=== PATIENT | male | born 1945 | race Caucasian/White ===

== ENCOUNTER → 2017-01-16 | Outpatient (CLI) | payer MEDICARE ==
[2017-01-16 08:48] LABS: ABSOLUTE BASOPHILS # (AUTO) 0.1 10^3/uL (0.0-0.2); ABSOLUTE EOSINOPHILS # (AUTO) 0.3 10^3/uL (0.0-0.6); ABSOLUTE LYMPHOCYTES (AUTO) 1.3 10^3/uL (0.5-4.7); ABSOLUTE MONOCYTES (AUTO) 0.6 10^3/uL (0.1-1.4); ABSOLUTE NEUT (AUTO) 2.8 10^3/uL (1.7-8.2); BASOPHILS % (AUTO) 1.2 % (0-2); EOSINOPHILS % (AUTO) 5.4 % (0-6); HEMATOCRIT 43.8 % (37.9-51.0); HGB HCT DIFFERENCE 1.2; LYMPHOCYTES % (AUTO) 25.5 % (13-45); MEAN CORPUSCULAR HEMOGLOBIN 30.3 pg (27.0-33.4); MEAN CORPUSCULAR HGB CONC 34.3 g/dL (32.0-36.0); MEAN CORPUSCULAR VOLUME 89 fl (80-97); MONOCYTES % (AUTO) 11.2 % (3-13); RED BLOOD COUNT 4.95 10^6/uL (4.35-5.55); RED CELL DISTRIBUTION WIDTH 13.5 % (11.5-14.0); SEGMENTED NEUTROPHILS % (AUTO) 56.7 % (42-78)
[2017-01-16 09:06] LABS: ALANINE AMINOTRANSFERASE 47 U/L (21-72); ALBUMIN 4.2 g/dL (3.5-5.0); ALKALINE PHOSPHATASE 62 U/L (38-126); ANION GAP 11 (5-19); ASPARTATE AMINO TRANSFERASE 29 U/L (17-59); BILIRUBIN,DIRECT 0.3 mg/dL (0.0-0.4); BILIRUBIN,TOTAL 1.1 mg/dL (0.2-1.3); BLOOD UREA NITROGEN 18 mg/dL (7-20); CALCIUM 9.8 mg/dL (8.4-10.2); CARBON DIOXIDE 30 mmol/L (22-30); CHLORIDE 104 mmol/L (98-107); CHOLESTEROL 111.65 mg/dL (0-200); CREATININE RESULT 1.02 mg/dL (0.52-1.25); Direct HDL 39 mg/dL (>40); GLUCOSE 99 mg/dL (75-110); MAGNESIUM 1.9 mg/dL (1.6-2.3); POTASSIUM 4.1 mmol/L (3.6-5.0); SODIUM 145.1 mmol/L (137-145); TOTAL PROTEIN 6.8 g/dL (6.3-8.2); TRIGLYCERIDES 86 mg/dL (<150)
[2017-01-16 09:20] LABS: DIRECT LDL 50 mg/dL (<100)
== END ==
LOC: OD 07:38
PROVIDERS: ATTEND Internal Medicine
DX: E78.5 Hyperlipidemia, unspecified (principal); I10 Essential (primary) hypertension; R73.9 Hyperglycemia, unspecified; R35.1 Nocturia; R53.82 Chronic fatigue, unspecified; M19.90 Unspecified osteoarthritis, unspecified site; K21.9 Gastro-esophageal reflux disease without esophagitis
CPT/HCPCS: 36415; 80053; 80061; 83036; 83525; 83735; 84153; 84443; 85025

== ENCOUNTER → 2018-10-22 | Day surgery (SDC) | payer MEDICARE, BC ==
[~2018-10-22] MED LIST: CEFAZOLIN 1 GM/D5W RTU 1 GM/50 ML RTUPB IV PRN; LIDOCAINE 1%/EPINEPHRINE INJ 20 ML VIAL ONE; SODIUM BICARBONATE 8.4% INJ 50 MEQ/50 ML DISP.SYRIN ONE
[2018-10-22 09:21] VITALS: BP 143/81
--- NOTE | 2018-10-22 11:20 | Operative Report ---
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 Patient was brought into the operating room and placed on the operating room table in a supine position. Patient was then prepped with a Betadine scrub and Betadine solution and draped in a sterile and aseptic manner. The area was then marked. 12 O'clock was marked towards the elbow 3 O'clock was marked towards the volar surface 6:00 was marked towards the wrist 9:00 was marked towards the dorsal surface The area was then anesthetized with 1% lidocaine with epinephrine and bicarbonate for its anesthetic and hemostatic effects. The area was then excised and marked at 12:00. The specimen was sent for frozen section. The results came back that the deep and lateral margins were free. We had considered a primary closure but this would go against the natural relaxed skin tension lines. A primary closure would be too tight and would have increased chance of dehiscence. This will leave more of a scar so we decided to use a O to S flap reconstruction which would camouflage the scar better and take tension off of the closure so that would be less chances of complications. Then we went ahead and outlined the flap and anesthetized it. We then incised the flap and developed a flap maintaining the subdermal plexus. Then we undermined 360 to allow for plate like scarring and minimize trap door deformity. Throughout the case hemostasis was achieved with the bipolar. We then sutured the flap into its new position using 4-0 Vicryl for the subcutaneous and deep dermis. Skin was closed with a running subcuticular suture stitch using 4-0 PDS with knots being tied on the outside. And 4-0 PDS suture was used for support and placed in the central area of the incision. We then applied Dermabond followed by a light pressure dressing. Patient was then reversed from anesthesia and taken to the [facility] for recovery. The patient tolerated well. There were no complications. Lesion size was approximately 1.4 cm please see pathology for actual size. Portions of this note may be dictated using [employer] voice recognition software. Occasional variations and spelling and vocabulary could be possible and are unintentional. Additionally, there is a chance that some errors may not be caught or corrected. Please notify the author of any discrepancies noted or if any statements are unclear. Subjective: No complaints Objective: Vital signs stable afebrile No bleeding Dressing intact Assessment and plan: Doing well. Elevate the operative site. Resume medications. Take antibiotics for 1 day Follow-up Full instructions were given to the patient and family and they understand Portions of this note may be dictated using [employer] voice recognition software. Occasional variations and spelling and vocabulary could be possible and are unintentional. Additionally, there is a chance that some errors may not be caught or corrected. Please notify the offer of any discrepancies noted or if any statements are unclear.
--- NOTE | 2018-10-22 11:28 | Discharge Summary ---
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 Elevate operative area to decrease swelling. Do not strain, or lift heavy objects. Call for excessive bleeding, increased temperature of 101, uncontrolled pain, or excessive nausea or vomiting. You may reach Dr. Moody through his office at [phone]. In the event of an emergency after hours, then contact Dr. Moody through [facility]. Return to the office for a postop check on . The time will be scheduled by the nursing staff of [facility] prior to discharge. Please give the patient a copy of their labs and EKG so they can bring this to their PMD. Thank you Portions of this note may be dictated using [email or web address] voice recognition software. Occasional variations and spelling and vocabulary could be possible and are unintentional. Additionally, there is a chance that some errors may not be caught or corrected. Please notify the offer of any discrepancies noted or if any statements are unclear. Referrals: EB MERCHANT MD [Primary Care Provider] - EFRAIN MOODY MD [ACTIVE STAFF] - Discharge Diet: As Tolerated Discharge Activity: No Lifting/Push/Pulling Report the Following to Your Physician Immediately: Unusual Bleeding - Keep hand elevated. Monitor capillary refill.
== END ==
LOC: OROUT 07:42
PROVIDERS: ATTEND Plastic Surgery
DX: C44.629 Squamous cell carcinoma of skin of left upper limb, including shoulder (principal); L57.0 Actinic keratosis; L57.8 Other skin changes due to chronic exposure to nonionizing radiation; Z79.899 Other long term (current) drug therapy; Z79.82 Long term (current) use of aspirin; Z01.818 Encounter for other preprocedural examination; Z79.1 Long term (current) use of non-steroidal anti-inflammatories (NSAID)
CPT/HCPCS: 88305 ×2; 88331 ×2; 14020; J3490 ×2

== ENCOUNTER → 2019-01-13 | Outpatient (CLI) | payer MEDICARE, BC ==
[2019-01-13 09:38] LABS: ABSOLUTE BASOPHILS # (AUTO) 0.1 10^3/uL (0.0-0.2); ABSOLUTE EOSINOPHILS # (AUTO) 0.3 10^3/uL (0.0-0.6); ABSOLUTE LYMPHOCYTES (AUTO) 1.2 10^3/uL (0.5-4.7); ABSOLUTE MONOCYTES (AUTO) 0.5 10^3/uL (0.1-1.4); ABSOLUTE NEUT (AUTO) 2.7 10^3/uL (1.7-8.2); BASOPHILS % (AUTO) 1.2 % (0-2); EOSINOPHILS % (AUTO) 6.4 % (0-6); HEMATOCRIT 44.8 % (37.9-51.0); HEMOGLOBIN 15.3 g/dL (13.5-17.0); LYMPHOCYTES % (AUTO) 25.2 % (13-45); MEAN CORPUSCULAR HEMOGLOBIN 30.1 pg (27.0-33.4); MEAN CORPUSCULAR HGB CONC 34.1 g/dL (32.0-36.0); MEAN CORPUSCULAR VOLUME 88 fl (80-97); MONOCYTES % (AUTO) 9.8 % (3-13); PLATELET COUNT 161 10^3/uL (150-450); RED BLOOD COUNT 5.07 10^6/uL (4.35-5.55); RED CELL DISTRIBUTION WIDTH 13.1 % (11.5-14.0); SEGMENTED NEUTROPHILS % (AUTO) 57.4 % (42-78); TOTAL CELLS COUNTED % (AUTO) 100 %; WHITE BLOOD COUNT 4.7 10^3/uL (4.0-10.5)
[2019-01-13 10:06] LABS: ALANINE AMINOTRANSFERASE 47 U/L (21-72); ALKALINE PHOSPHATASE 56 U/L (38-126); ANION GAP 7 (5-19); ASPARTATE AMINO TRANSFERASE 30 U/L (17-59); BILIRUBIN,DIRECT 0.3 mg/dL (0.0-0.4); BILIRUBIN,TOTAL 0.5 mg/dL (0.2-1.3); BLOOD UREA NITROGEN 22 mg/dL (7-20); CALCIUM 9.9 mg/dL (8.4-10.2); CARBON DIOXIDE 29 mmol/L (22-30); CHLORIDE 105 mmol/L (98-107); GLUCOSE 102 mg/dL (75-110); POTASSIUM 4.1 mmol/L (3.6-5.0); SODIUM 140.9 mmol/L (137-145); TOTAL PROTEIN 6.8 g/dL (6.3-8.2); TRIGLYCERIDES 68 mg/dL (<150)
[2019-01-13 10:18] LABS: DIRECT LDL 103 mg/dL (<100)
== END ==
LOC: OD 08:22
PROVIDERS: ATTEND Internal Medicine
DX: E78.5 Hyperlipidemia, unspecified (principal); R53.83 Other fatigue; K21.9 Gastro-esophageal reflux disease without esophagitis; R35.1 Nocturia
CPT/HCPCS: 36415; 80053; 80061; 84153; 84443; 85025

== ENCOUNTER 2019-05-22 09:43 | Inpatient (IN) | payer MEDICARE, BC ==
[2019-05-22] MEDS ORDERED: NORMAL SALINE 1000 ML 1,000 ML IV ONE (10:25)
--- NOTE | 2019-05-22 10:42 | ER Document Report ---
ED General - General Chief Complaint: Tremor Stated Complaint: SHAKES,CHILLS/POST BIOPSY ON Time Seen by Provider: 05/22/19 10:22 Primary Care Provider: EB MERCHANT MD [Primary Care Provider] - Follow up as needed Mode of Arrival: Ambulatory Information source: Patient, [facility] Records Notes: This 74-year-old male patient comes emergency room for onset of chills today. He had prostate biopsies done on 05/20/2019. He states he felt fine yesterday. He states his urine was mostly clear yesterday. He noted more blood in the urine this morning, but still felt well until 9:15 AM when he began to feel clammy and then developed shaking chills. He states he was shaking to the point that he was unable to hold a pen and write. He did take Tylenol 1300 mg about 9:40 AM, and at this time does feel better. Patient reports that his paperwork stated he was supposed to start taking Cipro the day before the procedure, but he never received the prescription. He began taking his 's Cipro on Sunday the day after the procedure. He did go to the drugstore to waste picker his prescription and they had no record of one being sent in so he continue taking his spouse's Cipro. The prostate biopsies were done due to a PSA that increased to 4.37, and nodule felt on digital rectal exam by his urologist. TRAVEL OUTSIDE OF THE [place] IN LAST 30 DAYS: No - Related Data Allergies/Adverse Reactions: wasp Allergy (Uncoded 10/22/18 09:23) Swelling Past Medical History - General Information source: Patient - Social History Smoking Status: Never Smoker Cigarette use (# per day): No Chew tobacco use (# tins/day): No Smoking Education Provided: No Frequency of alcohol use: None Drug Abuse: None Occupation: food broker Lives with: Spouse/Significant other Family History: DM - Father from diabetes complications, Other - Mother with Alzheimer's dementia - Past Medical History Cardiac Medical History: Reports: Hx Hypercholesterolemia Musculoskeletal Medical History: Reports Hx Arthritis - Posttraumatic arthritis left shoulder Traumatic Medical History: Reports: Hx Fractures - Left shoulder dislocation with fracture to the inferior glenoid Surgical Hx: Other - Skin cancers removed from the right ear and left forearm. Past Surgical History: Reports: Other - Cosmetic ear reduction surgery at age [age] years old. - Immunizations Hx Diphtheria, Pertussis, Tetanus Vaccination: No Review of Systems - Review of Systems Constitutional: See HPI EENT: No symptoms reported Cardiovascular: No symptoms reported Physical Exam - Vital signs Vitals: Temp Pulse Resp BP Pulse Ox 99.1 F 91 20 142/103 H 97 05/22/19 09:49 05/22/19 09:49 05/22/19 09:49 05/22/19 09:49 05/22/19 09:49 - General General appearance: Appears well, Alert In distress: None - HEENT Head: Normocephalic, Atraumatic Eyes: Normal Pupils: PERRL Neck: Normal - Respiratory Respiratory status: No respiratory distress Breath sounds: Normal - Cardiovascular Rhythm: Regular Heart sounds: Normal auscultation Murmur: No - Abdominal Inspection: Normal Bowel sounds: Normal Tenderness: Nontender - Back Back: Normal - Extremities General upper extremity: Normal inspection General lower extremity: Normal inspection - Neurological Neuro grossly intact: Yes - Psychological Associated symptoms: Normal affect, Normal mood - Skin Skin Temperature: Warm Skin Moisture: Moist Skin Color: Normal Course - Vital Signs Vital signs: Temp Pulse Resp BP Pulse Ox 99.1 F 91 18 127/57 H 92 05/22/19 09:49 05/22/19 09:49 05/22/19 12:01 05/22/19 12:01 05/22/19 12:01 - Laboratory Result Diagrams: 05/22/19 10:11 05/22/19 10:11 Laboratory results interpreted by me: 05/22/19 05/22/19 05/22/19 10:11 10:11 10:34 Plt Count 140 L Seg Neutrophils % 90.6 H Lymphocytes % 6.0 L Monocytes % 1.3 L Absolute Lymphocytes 0.3 L BUN 22 H Creatinine 1.38 H Est GFR (Non-Af Amer) 51 L Urine Protein 30 H Urine Blood LARGE H - EKG Interpretation by Me EKG shows normal: Sinus rhythm, [place], Intervals, ST-T Waves. abnormal: QRS Complexes - Abnormal R progression Rate: Normal - 92 Rhythm: NSR [place]/QRS: LAHB/LAFB When compared to previous EKG there are: No significant change - Consults Dr. Schneider Consulted provider: will come to ER Discharge - Discharge Clinical Impression: Urinary tract infection with fever, Renal insufficiency Sepsis Qualifiers: Sepsis type: sepsis due to unspecified organism Sepsis acute organ dysfunction status: without acute organ dysfunction Qualified Code(s): A41.9 - Sepsis, unspecified organism Condition: Stable Disposition: ADMITTED INPATIENT Admitting Provider: Jennie (Hospitalist) Unit Admitted: IMCU Referrals: EB MERCHANT MD [Primary Care Provider] - Follow up as needed
[2019-05-22 10:49] LABS: ABSOLUTE EOSINOPHILS # (AUTO) 0.1 10^3/uL (0.0-0.6); ABSOLUTE LYMPHOCYTES (AUTO) 0.3 10^3/uL (0.5-4.7); ABSOLUTE MONOCYTES (AUTO) 0.1 10^3/uL (0.1-1.4); ABSOLUTE NEUT (AUTO) 5.2 10^3/uL (1.7-8.2); BASOPHILS % (AUTO) 0.3 % (0-2); EOSINOPHILS % (AUTO) 1.8 % (0-6); HEMOGLOBIN 15.4 g/dL (13.5-17.0); MEAN CORPUSCULAR HEMOGLOBIN 29.6 pg (27.0-33.4); MEAN CORPUSCULAR HGB CONC 33.5 g/dL (32.0-36.0); MEAN CORPUSCULAR VOLUME 88 fl (80-97); MONOCYTES % (AUTO) 1.3 % (3-13); PLATELET COUNT 140 10^3/uL (150-450); RED BLOOD COUNT 5.21 10^6/uL (4.35-5.55); RED CELL DISTRIBUTION WIDTH 13.4 % (11.5-14.0); SEGMENTED NEUTROPHILS % (AUTO) 90.6 % (42-78); TOTAL CELLS COUNTED % (AUTO) 100 %; WHITE BLOOD COUNT 5.8 10^3/uL (4.0-10.5)
[2019-05-22 10:58] LABS: APPEARANCE,URINE CLOUDY; BILIRUBIN,URINE NEGATIVE (NEGATIVE); COLOR,URINE PINK; GLUCOSE, URINE NEGATIVE (NEGATIVE); KETONES,URINE NEGATIVE (NEGATIVE); LEUKOCYTE ESTERASE,URINE NEGATIVE (NEGATIVE); NITRITE,URINE NEGATIVE (NEGATIVE); PROTEIN,URINE 30 mg/dL (NEGATIVE); URINE SPECIFIC GRAVITY 1.017; UROBILINOGEN,URINE NEGATIVE mg/dL (<2.0)
[2019-05-22 11:07] LABS: ALBUMIN 4.2 g/dL (3.5-5.0); ALKALINE PHOSPHATASE 60 U/L (38-126); ANION GAP 10 (5-19); ASPARTATE AMINO TRANSFERASE 32 U/L (17-59); BILIRUBIN,DIRECT 0.2 mg/dL (0.0-0.4); BILIRUBIN,TOTAL 0.5 mg/dL (0.2-1.3); BLOOD UREA NITROGEN 22 mg/dL (7-20); CALCIUM 9.5 mg/dL (8.4-10.2); CARBON DIOXIDE 29 mmol/L (22-30); CHLORIDE 101 mmol/L (98-107); CREATINE KINASE 157 U/L (55-170); GLUCOSE 88 mg/dL (75-110); POTASSIUM 4.2 mmol/L (3.6-5.0); TOTAL PROTEIN 6.9 g/dL (6.3-8.2)
--- NOTE | 2019-05-22 11:25 | EKG REPORT ---
SEVERITY:- ABNORMAL ECG - SINUS RHYTHM LEFT ANTERIOR FASCICULAR BLOCK ABNRM R PROG, CONSIDER ASMI OR LEAD PLACEMENT : Confirmed by: Davion Kasper 22-May-2019 11:24:56
[2019-05-22] MEDS ORDERED: CEFTRIAXONE 1 GM/D5W RTU 1 GM/50 ML RTUPB IV ONE (13:04)
[2019-05-22] MEDS ORDERED: ONDANSETRON HCL INJ/PF 4 MG/2 ML SDV IV PRN (14:02)
[2019-05-22] MEDS ORDERED: NORMAL SALINE 1000 ML 1,000 ML IV PRN (14:02)
[2019-05-22] MEDS ORDERED: ACETAMINOPHEN 325 MG TABLET PO PRN (14:02)
--- NOTE | 2019-05-22 14:02 | PDOC H&P ---
History of Present Illness Admission Date/PCP: EB MERCHANT MD History of Present Illness: CHA RUST JR is a 74 year old male patient with past medical history of hyperlipidemia presented with chief complaint of fever and shaking chills. Of note patient had prostate biopsy 2 days ago specifically on 05/20/2019. Patient states he felt fine yesterday. He states his urine was mostly clear yesterday. He noted more blood in his urine this morning but still felt well until 9:15 AM when he began to have shaking chills and clammy. His urinalysis positive for blood and pyuria. Patient denies any nausea, vomiting, abdominal pain, diarrhea. No dizziness, headache, blurring of vision or any seizure activity. Past Medical History Cardiac Medical History: Reports: Hyperlipidema Denies: Coronary Artery Disease, Myocardial Infarction, Hypertension Pulmonary Medical History: Denies: Asthma, Bronchitis, Chronic Obstructive Pulmonary Disease (COPD), Pneumonia Neurological Medical History: Denies: Seizures Musculoskeltal Medical History: Reports: Arthritis - Posttraumatic arthritis left shoulder Hematology: Denies: Anemia Past Surgical History Past Surgical History: Reports: Other - Cosmetic ear reduction surgery at age [age] years old. Social History Lives with: Spouse/Significant other Smoking Status: Never Smoker - Advance Directive Resuscitation Status: Full Code Family History Family History: DM - Father from diabetes complications, Other - Mother with Alzheimer's dementia Parental Family History Reviewed: Yes Children Family History Reviewed: Yes Sibling(s) Family History Reviewed.: Yes Medication/Allergy Allergies/Adverse Reactions: wasp Allergy (Uncoded 10/22/18 09:23) Swelling Review of Systems Constitutional: PRESENT: chills, fatigue, fever(s) Eyes: ABSENT: visual disturbances Ears: ABSENT: hearing changes Cardiovascular: ABSENT: chest pain, dyspnea on exertion, edema, orthropnea, palpitations Respiratory: ABSENT: cough, hemoptysis Gastrointestinal: ABSENT: abdominal pain, constipation, diarrhea, hematemesis, hematochezia, nausea, vomiting Genitourinary: ABSENT: dysuria, hematuria Musculoskeletal: ABSENT: joint swelling Integumentary: ABSENT: rash, wounds Neurological: ABSENT: abnormal gait, abnormal speech, confusion, dizziness, focal weakness, syncope Psychiatric: ABSENT: anxiety, depression, homidical ideation, suicidal ideation Endocrine: ABSENT: cold intolerance, heat intolerance, polydipsia, polyuria Hematologic/Lymphatic: ABSENT: easy bleeding, easy bruising Physical Exam Vital Signs: Temp Pulse Resp BP Pulse Ox 99.1 F 91 18 127/57 H 92 05/22/19 09:49 05/22/19 09:49 05/22/19 12:01 05/22/19 12:01 05/22/19 12:01 Intake & Output 05/21/19 05/22/19 05/23/19 06:59 06:59 06:59 Intake Total 1000 Balance 1000 Weight 110.7 kg General appearance: PRESENT: no acute distress Head exam: PRESENT: atraumatic Eye exam: PRESENT: conjunctiva pink Neck exam: ABSENT: carotid bruit, JVD, lymphadenopathy, thyromegaly Respiratory exam: PRESENT: clear to auscultation alex. ABSENT: rales, rhonchi, wheezes Cardiovascular exam: PRESENT: RRR. ABSENT: diastolic murmur, rubs, systolic murmur GI/Abdominal exam: PRESENT: normal bowel sounds, soft. ABSENT: distended, guarding, mass, organolmegaly, rebound, tenderness Neurological exam: PRESENT: alert, awake, oriented to person, oriented to place, oriented to time, oriented to situation Results Laboratory Results: 05/22/19 10:11 05/22/19 10:11 05/22/19 05/22/19 05/22/19 10:11 10:11 10:34 WBC 5.8 RBC 5.21 Hgb 15.4 Hct 46.0 MCV 88 MCH 29.6 MCHC 33.5 RDW 13.4 Plt Count 140 L Seg Neutrophils % 90.6 H Lymphocytes % 6.0 L Monocytes % 1.3 L Eosinophils % 1.8 Basophils % 0.3 Absolute Neutrophils 5.2 Absolute Lymphocytes 0.3 L Absolute Monocytes 0.1 Absolute Eosinophils 0.1 Absolute Basophils 0.0 Sodium 139.6 Potassium 4.2 Chloride 101 Carbon Dioxide 29 Anion Gap 10 BUN 22 H Creatinine 1.38 H Est GFR ( Amer) > 60 Est GFR (Non-Af Amer) 51 L Glucose 88 Lactic Acid 1.3 Calcium 9.5 Total Bilirubin 0.5 AST 32 Alkaline Phosphatase 60 Total Protein 6.9 Albumin 4.2 Urine Color Urine Appearance Urine pH Ur Specific [place] Urine Protein Urine Glucose (UA) Urine Ketones Urine Blood Urine Nitrite Ur Leukocyte Esterase Urine WBC (Auto) Urine RBC (Auto) 05/22/19 10:34 WBC RBC Hgb Hct MCV MCH MCHC RDW Plt Count Seg Neutrophils % Lymphocytes % Monocytes % Eosinophils % Basophils % Absolute Neutrophils Absolute Lymphocytes Absolute Monocytes Absolute Eosinophils Absolute Basophils Sodium Potassium Chloride Carbon Dioxide Anion Gap BUN Creatinine Est GFR ( Amer) Est GFR (Non-Af Amer) Glucose Lactic Acid Calcium Total Bilirubin AST Alkaline Phosphatase Total Protein Albumin Urine Color PINK Urine Appearance CLOUDY Urine pH 6.0 Ur Specific [place] 1.017 Urine Protein 30 H Urine Glucose (UA) NEGATIVE Urine Ketones NEGATIVE Urine Blood LARGE H Urine Nitrite NEGATIVE Ur Leukocyte Esterase NEGATIVE Urine WBC (Auto) 37 Urine RBC (Auto) >182 05/22/19 05/22/19 10:11 10:11 Creatine Kinase 157 Troponin I < 0.012 Assessment and Plan - Diagnosis (1) Prostatitis Qualifiers: Prostatitis type: acute Qualified Code(s): N41.0 - Acute prostatitis Is this a current diagnosis for this admission?: Yes Plan: Patient has been started on ceftriaxone by ER attending. I will continue the same antibiotics and watch him closely. (2) Hematuria Is this a current diagnosis for this admission?: Yes Plan: This might be temporary as follows prostate biopsy. (3) Hyperlipidemia Qualifiers: Hyperlipidemia type: unspecified Qualified Code(s): E78.5 - Hyperlipidemia, unspecified Is this a current diagnosis for this admission?: Yes Plan: Continue home medication - Inpatient Certification Medical Necessity: Need for IV Antibiotics Post Hospital Care: Other - Failed outpatient antibiotic treatment
[2019-05-22] MEDS: ENOXAPARIN SODIUM INJ 40 MG/0.4 ML DISP.SYRIN SUBCUT SCH (16:59)
[2019-05-22] MEDS: FAMOTIDINE 20 MG TABLET PO SCH (21:45)
[2019-05-23 05:13] LABS: ABSOLUTE EOSINOPHILS # (AUTO) 0.1 10^3/uL (0.0-0.6); ABSOLUTE LYMPHOCYTES (AUTO) 0.9 10^3/uL (0.5-4.7); ABSOLUTE MONOCYTES (AUTO) 0.8 10^3/uL (0.1-1.4); BASOPHILS % (AUTO) 0.6 % (0-2); EOSINOPHILS % (AUTO) 2.1 % (0-6); HEMATOCRIT 42.4 % (37.9-51.0); HEMOGLOBIN 14.4 g/dL (13.5-17.0); LYMPHOCYTES % (AUTO) 12.7 % (13-45); MEAN CORPUSCULAR HEMOGLOBIN 29.9 pg (27.0-33.4); MEAN CORPUSCULAR VOLUME 88 fl (80-97); PLATELET COUNT 126 10^3/uL (150-450); RED BLOOD COUNT 4.81 10^6/uL (4.35-5.55); RED CELL DISTRIBUTION WIDTH 13.3 % (11.5-14.0); SEGMENTED NEUTROPHILS % (AUTO) 73.6 % (42-78); TOTAL CELLS COUNTED % (AUTO) 100 %; WHITE BLOOD COUNT 6.8 10^3/uL (4.0-10.5)
[2019-05-23 05:39] LABS: ANION GAP 7 (5-19); BLOOD UREA NITROGEN 16 mg/dL (7-20); CALCIUM 8.7 mg/dL (8.4-10.2); CARBON DIOXIDE 26 mmol/L (22-30); CHLORIDE 106 mmol/L (98-107); GLUCOSE 103 mg/dL (75-110); POTASSIUM 3.9 mmol/L (3.6-5.0)
[2019-05-23] MEDS: ENOXAPARIN SODIUM INJ 40 MG/0.4 ML DISP.SYRIN SUBCUT SCH (09:16)
[2019-05-23] MEDS: FAMOTIDINE 20 MG TABLET PO SCH (09:18)
--- NOTE | 2019-05-23 09:25 | PDOC DISCHARGE SUMMARY ---
General - Admit/Disc Date/PCP Admission Date/Primary Care Provider: 05/22/19 13:49 EB MERCHANT MD Discharge Date: 05/23/19 - Discharge Diagnosis (1) Prostatitis Is this a current diagnosis for this admission?: Yes (2) Hematuria Is this a current diagnosis for this admission?: Yes (3) Hyperlipidemia Is this a current diagnosis for this admission?: Yes - Additional Information Resuscitation Status: Full Code Home Medications: Aspirin [Ecotrin 81 mg EC Tablet] 81 mg PO DAILY 05/22/19 Atorvastatin Calcium [Lipitor 40 mg Tablet] 40 mg PO QHS 05/22/19 Multivitamin [Tab-A-Hallie (Multiple Vitamin) Tablet] 1 tab PO DAILY 05/22/19 Ubidecarenone/Vit E Acet [Co Q-10 100 mg Softgel] 1 each PO DAILY 05/22/19 History of Present Illness History of Present Illness: CHA RUST JR is a 74 year old male patient with past medical history of hyperlipidemia presented with chief complaint of fever and shaking chills. Of note patient had prostate biopsy 2 days ago specifically on 05/20/2019. Patient states he felt fine yesterday. He states his urine was mostly clear yesterday. He noted more blood in his urine this morning but still felt well until 9:15 AM when he began to have shaking chills and clammy. His urinalysis positive for blood and pyuria. Patient denies any nausea, vomiting, abdominal pain, diarrhea. No dizziness, headache, blurring of vision or any seizure activity. Hospital Course Hospital Course: CHA RUST JR is a 74 year old male patient with past medical history of hyperlipidemia presented with chief complaint of fever and shaking chills. Of note patient had prostate biopsy 2 days ago specifically on 05/20/2019. Patient states he felt fine yesterday. He states his urine was mostly clear yesterday. He noted more blood in his urine this morning but still felt well until 9:15 AM when he began to have shaking chills and clammy. His urinalysis positive for blood and pyuria. Patient denies any nausea, vomiting, abdominal pain, diarrhea. No dizziness, headache, blurring of vision or any seizure activity. 05/23/2019: Patient seen and examined while he is resting in bed comfortably. He is awake alert oriented. He is not in pain or distress. Patient reports no more shaking chills and no blood in his urine. No fever, nausea or vomiting. He ate well his breakfast. His vital signs are within normal limits and his kidney function is has improved yesterday his creatinine was 1.34 today 1.11. I will discharge him home with Levaquin 500 mg p.o. daily for 5 days and he needs follow-up with his primary care physician in 1 week. Physical Exam Vital Signs: Temp Pulse Resp BP Pulse Ox 99.0 F 66 17 136/60 H 99 05/23/19 07:30 05/23/19 07:30 05/23/19 07:30 05/23/19 07:30 05/23/19 07:30 Intake & Output 05/22/19 05/23/19 05/24/19 06:59 06:59 06:59 Intake Total 1630 Output Total 1550 Balance 80 Weight 113 kg General appearance: PRESENT: no acute distress, well-developed, well-nourished Head exam: PRESENT: atraumatic, normocephalic Eye exam: PRESENT: conjunctiva pink, EOMI, PERRLA. ABSENT: scleral icterus Ear exam: PRESENT: normal external ear exam Mouth exam: PRESENT: moist, tongue midline Neck exam: ABSENT: carotid bruit, JVD, lymphadenopathy, thyromegaly Respiratory exam: PRESENT: clear to auscultation alex. ABSENT: rales, rhonchi, wheezes Cardiovascular exam: PRESENT: RRR. ABSENT: diastolic murmur, rubs, systolic murmur Pulses: PRESENT: normal dorsalis pedis pul Vascular exam: PRESENT: normal capillary refill GI/Abdominal exam: PRESENT: normal bowel sounds, soft. ABSENT: distended, guarding, mass, organolmegaly, rebound, tenderness Rectal exam: PRESENT: deferred Extremities exam: PRESENT: full ROM. ABSENT: calf tenderness, clubbing, pedal edema Neurological exam: PRESENT: alert, awake, oriented to person, oriented to place, oriented to time, oriented to situation, CN II-XII grossly intact. ABSENT: motor sensory deficit Psychiatric exam: PRESENT: appropriate affect, normal mood. ABSENT: homicidal ideation, suicidal ideation Skin exam: PRESENT: dry, intact, warm. ABSENT: cyanosis, rash Results Laboratory Results: 05/23/19 04:06 08/16/19 04:06 05/22/19 05/22/19 05/22/19 10:11 10:11 10:34 WBC 5.8 RBC 5.21 Hgb 15.4 Hct 46.0 MCV 88 MCH 29.6 MCHC 33.5 RDW 13.4 Plt Count 140 L Seg Neutrophils % 90.6 H Lymphocytes % 6.0 L Monocytes % 1.3 L Eosinophils % 1.8 Basophils % 0.3 Absolute Neutrophils 5.2 Absolute Lymphocytes 0.3 L Absolute Monocytes 0.1 Absolute Eosinophils 0.1 Absolute Basophils 0.0 Sodium 139.6 Potassium 4.2 Chloride 101 Carbon Dioxide 29 Anion Gap 10 BUN 22 H Creatinine 1.38 H Est GFR ( Amer) > 60 Est GFR (Non-Af Amer) 51 L Glucose 88 Lactic Acid 1.3 Calcium 9.5 Total Bilirubin 0.5 AST 32 Alkaline Phosphatase 60 Total Protein 6.9 Albumin 4.2 Urine Color Urine Appearance Urine pH Ur Specific [place] Urine Protein Urine Glucose (UA) Urine Ketones Urine Blood Urine Nitrite Ur Leukocyte Esterase Urine WBC (Auto) Urine RBC (Auto) 05/22/19 05/23/19 05/23/19 10:34 04:06 04:06 WBC 6.8 RBC 4.81 Hgb 14.4 Hct 42.4 MCV 88 MCH 29.9 MCHC 34.0 RDW 13.3 Plt Count 126 L Seg Neutrophils % 73.6 Lymphocytes % 12.7 L Monocytes % 11.0 Eosinophils % 2.1 Basophils % 0.6 Absolute Neutrophils 5.0 Absolute Lymphocytes 0.9 Absolute Monocytes 0.8 Absolute Eosinophils 0.1 Absolute Basophils 0.0 Sodium 139.3 Potassium 3.9 Chloride 106 Carbon Dioxide 26 Anion Gap 7 BUN 16 Creatinine 1.11 Est GFR ( Amer) > 60 Est GFR (Non-Af Amer) > 60 Glucose 103 Lactic Acid Calcium 8.7 Total Bilirubin AST Alkaline Phosphatase Total Protein Albumin Urine Color PINK Urine Appearance CLOUDY Urine pH 6.0 Ur Specific [place] 1.017 Urine Protein 30 H Urine Glucose (UA) NEGATIVE Urine Ketones NEGATIVE Urine Blood LARGE H Urine Nitrite NEGATIVE Ur Leukocyte Esterase NEGATIVE Urine WBC (Auto) 37 Urine RBC (Auto) >182 05/22/19 05/22/19 10:11 10:11 Creatine Kinase 157 Troponin I < 0.012 Qualifiers - * PATIENT BEING DISCHARGED WITH ANY OF THE FOLLOWING DIAGNOSIS: No Acute Heart Failure - Is this a Heart Failure Patient?: No LVEF < 40%?: No- if no continue to question #3 3. Anticoagulant therapy for permanect/persistent/paraoxysmal Afib or Aflutter: N/A Follow-up Appointment scheduled within 7 days?: Yes
[2019-05-23] MEDS ORDERED: DOCUSATE SODIUM 100 MG CAPSULE PO SCH (10:00)
[2019-05-23] MEDS ORDERED: CEFTRIAXONE 2 GM/D5W RTU 2 GM/50 ML RTUPB IV SCH (10:00)
[2019-05-23] MEDS ORDERED: CEFTRIAXONE SODIUM 2,000 MG in DEXTROSE 5%-WATER 100 ML IV SCH (10:00)
[2019-05-23 10:54] VITALS: BP 117/65
[2019-05-24] MEDS ORDERED: CEFTRIAXONE 2 GM/D5W RTU 2 GM/50 ML RTUPB IV SCH (10:00)
== END 2019-05-23 11:19 | disposition home or self-care (01) | DRG 728 ==
LOC: ER 09:43 → EH 13:49 → 3W 14:57
PROVIDERS: ADMIT Internal Medicine; ATTEND Internal Medicine
DX: N41.0 Acute prostatitis (principal); R31.9 Hematuria, unspecified; E78.5 Hyperlipidemia, unspecified; N18.2 Chronic kidney disease, stage 2 (mild); M19.112 Post-traumatic osteoarthritis, left shoulder; Z79.82 Long term (current) use of aspirin; Z91.030 Bee allergy status; Z85.828 Personal history of other malignant neoplasm of skin
CPT/HCPCS: 36415; 80048; 80053; 81001; 82550; 83605; 84484; 85025; 87040; 87086; 93005; 93010; 96361; 96365; 99284; J0696; J7030; J7060

== ENCOUNTER → 2019-06-02 | Outpatient (CLI) | payer MEDICARE, BC ==
--- NOTE | 2019-06-02 12:46 | RADIOLOGY REPORT (SQ) ---
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 The route of agent administration: Intravenous. ADDITIONAL DRUGS AND DOSES: None. TECHNIQUE: Routine delayed images at 3 hour post radionuclide injection acquired of the bony skeleto n including anterior and posterior whole-body projections and additional focused images as needed. LIMITATIONS: None. FINDINGS: BONES: Scan areas of uptake in the knees feet and AC joints consistent with degenerative d isease. No findings to suggest metastatic disease. KIDNEYS: Symmetric excretion without obstruction. OTHER: No other significant finding. IMPRESSION: No evidence of metastatic disease. COMMENT: Quality measure 147: Current bone scan is compared with any available plain radiographs, p rior bone scans, and CT/MRI. TECHNICAL DOCUMENTATION: JOB ID: [id number] [employer]- All Rights Reserved Reading location - IP/workstation name: [email or web address]
== END ==
LOC: RAD 08:24
PROVIDERS: ATTEND Urology
DX: C61 Malignant neoplasm of prostate (principal)
CPT/HCPCS: 78306; A9561; Q9969

== ENCOUNTER 2020-05-29 06:20 | Emergency (ER) | payer MEDICARE, BC ==
[2020-05-29] MEDS ORDERED: TETRACAINE HCL 0.5% OPH SOLN 4 ML OS ONE (09:05)
--- NOTE | 2020-05-29 09:06 | ER Document Report ---
ED Eye Complaint - General Chief Complaint: Eye Pain Stated Complaint: LEFT EYE PAIN Time Seen by Provider: 05/29/20 08:56 Primary Care Provider: [facility] [Provider Group] - Follow up as needed EB MERCHANT MD [Primary Care Provider] - Follow up as needed Mode of Arrival: Ambulatory Information source: Patient Notes: Patient presents complaining of left eye pain and foreign body sensation to the eye. Patient states he did see his senior mechanical technician yesterday and had a foreign object removed from the eye. Patient states that they use the numbing drops and eventually the medicine wore off and he started to feel as though something was in his eye again. Patient states that after he did go to the eye doctor he did go out and mow the yard yesterday but does not recall getting anything in his eye while mowing. Patient does wear glasses but denies any use of contact lenses. TRAVEL OUTSIDE OF THE [place] IN LAST 30 DAYS: No - HPI Eye location: Left Injury: No Occurred at: Home Safety glasses worn: No Contact lenses worn: No Associated symptoms: Foreign body sensation - Related Data Allergies/Adverse Reactions: wasp Allergy (Uncoded 10/22/18 09:23) Swelling Home Medications: atorvastatin, flomax Past Medical History - General Information source: Patient - Social History Smoking Status: Never Smoker Frequency of alcohol use: None Drug Abuse: None Occupation: transportation agent Lives with: Family Family History: DM, Other Patient has homicidal ideation: No - Past Medical History Cardiac Medical History: Reports: Hx Hypercholesterolemia Denies: Hx Coronary Artery Disease, Hx Heart Attack, Hx Hypertension Pulmonary Medical History: Denies: Hx Asthma, Hx Bronchitis, Hx COPD, Hx Pneumonia Neurological Medical History: Denies: Hx Cerebrovascular Accident, Hx Seizures Renal/ Medical History: Denies: Hx Peritoneal Dialysis Musculoskeletal Medical History: Reports Hx Arthritis - Posttraumatic arthritis left shoulder Traumatic Medical History: Reports: Hx Fractures - Left shoulder dislocation with fracture to the inferior glenoid Surgical Hx: Negative Past Surgical History: Reports: Other - Cosmetic ear reduction surgery at age [age] years old. - Immunizations Hx Diphtheria, Pertussis, Tetanus Vaccination: No Review of Systems - Review of Systems Constitutional: No symptoms reported. denies: Fever, Recent illness EENT: Other - Foreign body sensation to the left eye. denies: Eye discharge, Blurred vision Cardiovascular: No symptoms reported Respiratory: No symptoms reported Gastrointestinal: No symptoms reported. denies: Vomiting Genitourinary: No symptoms reported Male Genitourinary: No symptoms reported Musculoskeletal: No symptoms reported Skin: No symptoms reported Hematologic/Lymphatic: No symptoms reported Neurological/Psychological: No symptoms reported. denies: Headaches Physical Exam - Vital signs Vitals: Temp Pulse Resp BP Pulse Ox 98.1 F 54 L 16 123/70 95 05/29/20 06:44 05/29/20 06:44 05/29/20 06:44 05/29/20 06:44 05/29/20 06:44 - General General appearance: Appears well, Alert In distress: None - HEENT Head: Normocephalic, Atraumatic Eyes: Normal Conjunctiva: Normal Cornea: Superficial foreign body - Small fibrous material removed from the left eye, patient with single eyelash that is inverted to the left upper lid. No: Corneal abrasion, Corneal ulcer, Dendrite, Embedded foreign body, Flourescein stain uptake Extraocular movements intact: Yes Eyelashes: Normal Pupils: PERRL Lids everted for exam: bilateral: Normal Neck: Normal, Supple. No: Lymphadenopathy - Respiratory Respiratory status: No respiratory distress - Back Back: Normal - Extremities General upper extremity: Normal inspection, Normal strength General lower extremity: Normal inspection, Normal strength - Neurological Neuro grossly intact: Yes Cognition: Normal Nita Coma Scale Eye Opening: Spontaneous Nita Coma Scale Verbal: Oriented Celina Coma Scale Motor: Obeys Commands Nita Coma Scale Total: 15 - Psychological Associated symptoms: Normal affect, Normal mood - Skin Skin Temperature: Warm Skin Color: Normal Course - Re-evaluation Re-evalutation: 05/29/20 Patient with small fibrous material removed from left eye, patient does have a single eyelash that is inverted that may likely be the culprit for causing him to have a foreign body sensation to the eye, no fluorescein uptake, no corneal abrasion, ulcer, or dendrite. - Vital Signs Vital signs: Temp Pulse Resp BP Pulse Ox 98.1 F 56 L 16 133/68 H 99 05/29/20 06:44 05/29/20 10:40 05/29/20 10:40 05/29/20 10:40 05/29/20 10:40 Procedures - Eye Procedure Left Foreign body removal: Left Slit lamp used: Yes Eyes picture: 1 - Eyelash that is inverted Discharge - Discharge Clinical Impression: Eyelash inversion Qualifiers: Laterality: left Eyelid: upper Qualified Code(s): H02.054 - Trichiasis without entropion left upper eyelid Condition: Stable Disposition: HOME, SELF-CARE Additional Instructions: Return immediately for any new or worsening symptoms Followup with your senior mechanical technician on Sunday for recheck Prescriptions: Erythromycin Base [E-Mycin 0.5% Oph Ointment 3.5 gm] 1 applic LFT_EYE QID #1 tube Referrals: EB MERCHANT MD [Primary Care Provider] - Follow up as needed [facility] [Provider Group] - Follow up as needed
[2020-05-29 10:41] VITALS: BP 133/68
== END 2020-05-29 10:40 | disposition home or self-care (01) ==
LOC: ER 06:20
DX: H02.054 Trichiasis without entropion left upper eyelid (principal); H57.12 Ocular pain, left eye; Z79.899 Other long term (current) drug therapy
CPT/HCPCS: 99283; J3490